=== PATIENT | male | born 1975 | race Caucasian/White ===

== ENCOUNTER 2021-06-26 11:47 | Emergency (ER) | payer OTHER ==
[~2021-06-26] VITALS: Ht 170.2 cm; Wt 86.6 kg
[2021-06-26 11:50] VITALS: BP 130/99
[2021-06-26] MEDS ORDERED: PRED20TA5 PO ×2 (12:04→13:04)
[2021-06-26] MEDS ORDERED: VALA1TAB42 PO ×2 (12:04→13:04)
--- NOTE | 2021-06-26 12:15 | NUR ---
NO NURSING INTERVENTIONS PERFORMED.
--- NOTE | 2021-06-26 12:16 | NUR ---
Patient discharged with v/s stable. Written and verbal after care instructions given and explained. Patient alert, oriented and verbalized understanding of instructions. Ambulatory with steady gait. All questions addressed prior to discharge. ID band removed. Patient advised to follow up with PMD. Rx of Prednisone, Valacyclovir given. Patient educated on indication of medication including possible reaction and side effects. Opportunity to ask questions provided and answered.
== END 2021-06-26 12:16 | disposition home or self-care (01) ==
LOC: MED 11:47
DX: B02.9 Zoster without complications (principal); Z79.899 Other long term (current) drug therapy
CPT/HCPCS: 99283